=== PATIENT | male | born 1930 | race Hispanic/Latino ===

== ENCOUNTER 2018-08-02 07:56 | Day surgery (SDC) | payer MEDICARE, OTHER ==
[2018-08-02] MEDS ORDERED: XYLOCAINE 1% 20 mL ONE (09:42)
--- NOTE | 2018-08-02 10:19 | Procedure Note ---
Date of procedure: 08/02/18 Pre-op diagnosis: Left neck mass Post-op diagnosis: same Procedure: 18 gauze needle used to biopsy the neck amss 3 cores obtained Flow cytometry specimen and routine formalin containers are used. Pt tolerated the procedure. No excessive bleeding noted
[2018-08-02 12:47] VITALS: BP 158/62
--- NOTE | 2018-08-12 13:10 | Ultrasound Report ---
87-year-old male with history large left neck mass Technique: Utilizing aseptic technique, 18-gauge vascular needle was introduced into the neck mass.. Through this access, several core specimen are obtained. The patient tolerated the procedure satisfactory. Findings: There is a large mass in the left neck. The mass appears to be solid in nature with no significant increased flow. The sample specimen obtained with the procedure was provided to the pathologist in in formalin container and also for flow cytometry specimen. The patient tolerated the procedure satisfactory. No immediate post procedure complication was noted.
== END 2018-08-02 07:57 | disposition home or self-care (01) ==
LOC: CATHLABREC 07:56 → EDSTATUS 09:00
PROVIDERS: ATTEND Internal Medicine
DX: C83.30 Diffuse large B-cell lymphoma, unspecified site (principal)
CPT/HCPCS: 20206; 76942; 88184; 88185; 88305; 88307; 88341; 88342

== ENCOUNTER 2018-08-11 12:17 | Outpatient (CLI) | payer MEDICARE, OTHER ==
--- NOTE | 2018-08-12 15:36 | PET Report ---
PET/CT:08/11/18 12:17:00 CLINICAL: Left neck mass. 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 RADIOPHARMACEUTICAL: 12.214mCi F18-FDG. COMPARISON: None. TECHNIQUE- Following intravenous injection of F-18 FDG and an approximately 60 minute uptake period, CT and PET images from the mid skull to the upper thighs were acquired with the patient in the fasted state. No contrast was administered. The CT protocol used for this PET CT study is designed for attenuation correction and anatomic localization of PET abnormalities. This reeling machine operator CT is not desired to produce and cannot replace, ffngl-lo-ywp-art diagnostic CT scans with specific imaging protocols for different body parts and indications. Plasma glucose at the time of this test: 99g/dl. The standardized uptake values (SUV) are normalized to patient body weight and indicate the highest activity concentration (SUV max) in a given disease site. FINDINGS: Brain--Physiologic FDG uptake in the visualized regions of the brain. Neck--A large FDG avid left neck mass with SUV 23.6 lies posterior to the left sternocleidomastoid muscle and extends from C3 into the chest to the level of the left sternoclavicular joint. The mass measures 11.1 x 9.4 x 5.6 cm. The mass encases the left subclavian artery just distal to its origin and encases the left common carotid artery from just distal to its origin to just proximal to the carotid bifurcation. The left jugular vein is also encased by the mass. The trachea and larynx are displaced to the right. An FDG avid right infraclavicular lymph node measures approximately 1 cm with SUV 6.5. Chest--Physiologic FDG uptake in mediastinal blood pool and myocardium. Lungs--No abnormal uptake. No pulmonary nodule or mass. Pleura/pericardium--No abnormal uptake. Thoracic nodes--No abnormal uptake. Hepatobiliary--No abnormal uptake. Liver background SUV mean, as a reference for comparing FDG studies, is 2.9 . No liver mass. A 2.2 cm benign right hepatic cyst. The gallbladder and bile ducts are normal. Spleen--No abnormal uptake. The spleen is normal size. Pancreas--No abnormal uptake. The pancreas is atrophic with extensive calcification. An oval cyst of the pancreatic tail measures 3.9 x 2.6 cm. A 2.4 cm cyst in the mid pancreas extending into the lesser curvature of the stomach. A more irregular cyst of the proximal pancreas. A portion of this may include a 1.5 cm dilated proximal pancreatic duct. No peripancreatic inflammatory changes. Adrenal Glands--No abnormal uptake. Kidneys/Ureters/Bladder--No abnormal uptake. Small bilateral renal cysts and bilateral cortical thinning and renal scarring. Abdominopelvic Nodes--An FDG avid right para-aortic mass slightly cephalad to the aortic bifurcation with SUV 22.4 measures 3.1 x 1.8 cm. At the same level, a left para-aortic FDG avid 2.3 x 1.9 cm lymph node with SUV 29.2. No pelvic lymphadenopathy. Bowel/Peritoneum/Mesentery--No abnormal uptake. extensive diverticulosis of the colon but no signs of diverticulitis. Pelvic organs--No abnormal uptake. Bones/Soft Tissues--No abnormal uptake. No suspicious bone lesions. IMPRESSION- 1. An 11 cm FDG avid left neck mass correlates with the known non-Hodgkin's lymphoma. 2. A 1 cm FDG avid right infraclavicular lymph node. 3. No mediastinal or hilar lymphadenopathy. 4. Two FDG avid para-aortic masses. 5. A benign right hepatic cyst. 6. 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
== END 2018-08-11 12:18 | disposition home or self-care (01) ==
LOC: PET 12:17
PROVIDERS: ATTEND Internal Medicine Hematology & Oncology
DX: C85.91 Non-Hodgkin lymphoma, unspecified, lymph nodes of head, face, and neck (principal); K76.89 Other specified diseases of liver; K86.1 Other chronic pancreatitis; I10 Essential (primary) hypertension; Z72.89 Other problems related to lifestyle
CPT/HCPCS: 78815; 82962; A9552

== ENCOUNTER 2018-08-26 09:13 | Outpatient (CLI) | payer MEDICARE, OTHER | END 2018-08-26 09:14 | disposition home or self-care (01) | LOC: ECHO 09:13 | PROVIDERS: ATTEND Internal Medicine Hematology & Oncology | DX: I37.1 Nonrheumatic pulmonary valve insufficiency (principal); I34.0 Nonrheumatic mitral (valve) insufficiency; C85.91 Non-Hodgkin lymphoma, unspecified, lymph nodes of head, face, and neck; E08.8 Diabetes mellitus due to underlying condition with unspecified complications; I10 Essential (primary) hypertension; E78.5 Hyperlipidemia, unspecified | CPT/HCPCS: 93306 ==

== ENCOUNTER 2018-09-02 11:57 | Day surgery (SDC) | payer MEDICARE, OTHER ==
[~2018-09-02 11:57] MED LIST: ANCEF/STERILE WATER 2 GM/20 ML 2 GM/20 ML SYRINGE IV NR; LACTATED RINGERS 1,000 ML IV SCH
[2018-09-02] MEDS ORDERED: XYLOCAINE 1% 20 mL ONE (12:31)
[2018-09-02] MEDS ORDERED: NACL 0.9% 250ML 250 ML ONE (12:32)
[2018-09-02] MEDS ORDERED: HEPARIN 10,000 UNITS/10 ML ONE (12:32)
[2018-09-02] MEDS ORDERED: MARCAINE 0.5% INFILTRATI ONE ×2 (12:32→14:20)
[2018-09-02] MEDS ORDERED: XYLOCAINE MPF 2% ONE (13:20)
[2018-09-02] MEDS ORDERED: DIPRIVAN 10 MG/ML IV ONE (13:20)
[2018-09-02] MEDS ORDERED: DILAUDID ONE (13:20)
--- NOTE | 2018-09-02 13:32 | Anesthesia Consultation ---
Anesthesia Consult and Med Hx Date of service: 09/02/18 - Airway Anesthetic Teeth Evaluation: Good (some missing teeth) ROM Head & Neck: Adequate (big lump on the left side of the neck, not compromising airways) Mallampati Class: Class II Intubation Access Assessment: Probably Good - Pre-Operative Health Status ASA Pre-Surgery Classification: ASA3 Proposed Anesthetic Plan: MAC - Cardiovascular System Hx Hypertension: Yes (OVER 20YRS) Hx Coronary Artery Disease: No (high cholesterol) - Central Nervous System Hx Psychiatric Problems: No - Endocrine Hx Renal Disease: No (h/o prostate CA, s/p prostate seeds) Hx Non-Insulin Dependent Diabetes: Yes - Hematic Hx Anemia: Yes (ORAL IRON) - Other Systems Hx Alcohol Use: Yes (WHEN HE WANTS) Hx Substance Use: No Hx Cancer: Yes (Prostate CA 90', NON-HODGKIN'S LYMPHOMA)
--- NOTE | 2018-09-02 13:32 | Anesthesia Day of Surgery ---
Anesthesia Day of Surgery - Day of Surgery Patient Examined: Yes Patient H&P Reviewed: Yes Patient is NPO: Yes
[2018-09-02] MEDS ORDERED: HEPARIN 10,000 UNITS/10 ML IV ONE (14:19)
[2018-09-02] MEDS ORDERED: XYLOCAINE 1% 20 mL INFILTRATI ONE (14:20)
--- NOTE | 2018-09-02 14:42 | Short Stay Summary ---
Short Stay Documentation Date of service: 09/02/18 - History H&P: obtained from office - Allergies and Medications Current Medications: Allergies No Known Allergies Allergy (Verified 09/01/18 16:25) Home Medications Medication Instructions Recorded Confirmed Last Taken Type Metformin HCl 500 mg PO BID 08/02/18 09/02/18 09/01/18 19:00 History Doxazosin Mesylate 8 mg PO DAILY 09/01/18 09/02/18 09/01/18 09:00 History Ferrous Sulfate [Feosol] 325 mg PO QDAY 09/01/18 09/02/18 09/01/18 09:00 History Simvastatin 20 mg PO DAILY 09/01/18 09/02/18 09/01/18 19:00 History Active Medications Cefazolin Sodium (Ancef/Sterile Water 2 Gm/20 Ml) 2 gm in 20 mls @ 80 mls/hr IV PREOP NR; Protocol Stop: 09/02/18 23:59 Lactated Ringer's (Lactated Ringers) 1,000 mls @ 75 mls/hr IV DIRECT HEIKE Last Admin: 09/02/18 12:30 Dose: 75 mls/hr Documented by: - Physical exam General appearance: no acute distress Lungs: Normal air movement - Brief post op/procedure progress note Date of procedure: 09/02/18 (Dictation:[id number]) Pre-op diagnosis: lymphoma Post-op diagnosis: same Procedure: Port placement under US guidance IVF 350cc Anesthesia: MAC Findings: normal anatomy Surgeon: ADALGISA GALLEGOS Estimated blood loss: minimal Pathology: none Condition: stable - Disposition Condition at discharge: Stable Disposition: DC-01 TO HOME OR SELFCARE Short Stay Discharge Plan Activity: other (no driving for 3 days) Diet: regular Wound: open to air, keep clean and dry, other (May shower tomorrow. Pat dry wounds. Apply ice to wounds for 10-15min/4-5 times a day) Special Instructions: no heavy lifting (or strenuous activity for 1 week) Additional Instructions: ACTIVITY - NO DRIVING FOR NEXT 3 DAYS. -NO HEAVY LIFTING OR STRENUOUS ACTIVITY FOR 1 WEEK. DIET -REGULAR. WOUND- KEEP CLEAN AND DRY . - YOU MAY SHOWER TOMORROW PAT DRY. - PLACE ICEPACK ON WOUND FOR 10-15 MINS 4-5 TIMES PER [address] CALL [address] ROSY'S OFFICE FOR FOLLOW UP CARE AND FOR ANY QUESTIONS OR CONCERNS RELATED TO THIS PROCEDURE. YOU ARE GIVEN A A BOOKLET SMART PORT WITH AND ID CARD AND BLUE BRACELET . KEEP ID CARD IN WALLET WEAR BRACELET. Follow up with: BUBBA ARCINIEGA MD [Primary Care Provider] - 7 Days Forms: Outpatient Surgery DC Inst.
--- NOTE | 2018-09-02 15:01 | Fluoroscopy Report ---
FLUOROSCOPY CENTRAL VENOUS DEVICE PLACEMENT HISTORY: Lymphoma, Rnkvmt-q-Yzbw insertion AP view of the chest is presented. A right IJ Hqcbyz-i-Gier has been inserted which terminates in the cavoatrial junction. There is no evidence for pneumothorax. Patchy infiltrate or scarring is suspected in the medial left upper lobe. The right lung is clear. No pleural fluid collection or mass is identified. Heart size is within normal limits. IMPRESSION: Right Yepeur-n-Dxxw placement as described. No pneumothorax.
[2018-09-02 17:41] VITALS: BP 142/65
--- NOTE | 2018-09-03 17:19 | Operative Report ---
PREOPERATIVE DIAGNOSIS: Lymphoma. POSTOPERATIVE DIAGNOSIS: Lymphoma. PROCEDURES: 1. Insertion of tunneled centrally inserted central venous access device with subcutaneous port. 2. Ultrasound guidance for vascular access. ATTENDING PHYSICIAN: Kg Benson MD ANESTHESIA: General. ESTIMATED BLOOD LOSS: Minimal. FLUIDS: 350 mL. IMPLANT: Smart Port. FINDINGS: Normal vascular anatomy. COMPLICATIONS: None. DISPOSITION: Stable, transferred to Recovery Room. INDICATIONS: This is an 87-year-old male who was recently diagnosed with lymphoma and assessed to be in need for chemotherapy. The patient was referred for port placement. Procedure, risks, benefits were explained to the patient. Risks included but were not limited to infection, bleeding, pain, injury to surrounding structures, possible hemopneumothorax, possible need for further procedures in the future. The patient understood and consented. OPERATIVE NOTE: The patient was brought to the operating room and placed on the table in supine position. After adequate sedation was established, ultrasound examination was done of the right internal jugular, right subclavian veins. I did not go on the left because the patient had a large neck mass on the left side, which obscured the entry point for the left internal jugular vein. The right internal jugular vein was very well visualized. There were no areas of concern, no clot or stenosis. The right subclavian vein was identified; however, it was found to be noncompressible; therefore, I did not want to take a chance in case our assessment was incorrect about which vessel that was, so we plan to go in the right internal jugular vein. Sterile prep and drape was done. The patient was placed in Trendelenburg position. Antibiotics had been administered. SCDs were in place. Time-out was called. I began by anesthetizing the planned vascular access point in the right neck. Under ultrasound guidance, I watched the introducer needle go into the vein. Blood was easily aspirated. A guidewire was passed. I could see it with the ultrasound in the right internal jugular vein. Fluoroscopy was brought in. Guidewire was on the right side of the heart. Wire was then secured to the drape. Planned pocket site was anesthetized as was the tract site. Oblique incision was made along the skin lines. Pocket was created. We checked to make sure the port could easily sit in the pocket and then the tunneler was used to pass the catheter up to the neck. Dilator and sheath were inserted over the wire. We checked multiple times to make sure the wire was freely movable as we were inserting the dilator, then the dilator and the wire were removed. Catheter was inserted. Length was adjusted based on fluoroscopy. The distal end was trimmed off and the port was attached. Using the dilute heparinized saline, we had easy aspiration and flush. We then positioned the catheter in its appropriate position, checked with fluoroscopy. It appeared to be in a very good position. I saw no evidence of any pneumothorax. Locking solution was administered. We made sure there was no bleeding. Subcutaneous tissue at the port site was closed with interrupted 3-0 Vicryl sutures. Skin sites were closed with 4-0 Monocryl subcuticular stitches. The skin was cleaned and dried. Dermabond was placed. The patient tolerated procedure well. There were no complications. Post-procedure chest x-ray showed no evidence of any complications and port to be in good position. JOB# [id number] BALJEET/KAROLINE
== END 2018-09-02 16:30 | disposition home or self-care (01) ==
LOC: OR 11:57
PROVIDERS: ATTEND Surgery
DX: C85.80 Other specified types of non-Hodgkin lymphoma, unspecified site (principal); I25.10 Atherosclerotic heart disease of native coronary artery without angina pectoris; E78.00 Pure hypercholesterolemia, unspecified; I10 Essential (primary) hypertension; E11.9 Type 2 diabetes mellitus without complications; Z85.89 Personal history of malignant neoplasm of other organs and systems; Z85.46 Personal history of malignant neoplasm of prostate; Z98.890 Other specified postprocedural states; Z79.84 Long term (current) use of oral hypoglycemic drugs; Z79.899 Other long term (current) drug therapy; Z72.89 Other problems related to lifestyle; Z86.2 Personal history of diseases of the blood and blood-forming organs and certain disorders involving the immune mechanism
CPT/HCPCS: 36561; 77001; 82962; C1788; J0690; J1170; J1644; J2704; J7050; J7120

== ENCOUNTER 2019-03-23 13:12 | Outpatient (CLI) | payer MEDICARE, OTHER ==
--- NOTE | 2019-03-23 17:14 | PET Report ---
PET/CT HISTORY: C85.91. Lymphoma restaging exam TECHNIQUE: The patient's fasting blood glucose was 139. The patient weighed 130 lbs. The patient w as injected with 14 mCi of FDG in the right wrist at 1358 and imaging was started at 1448. The patie nt was imaged from the skull base to the thighs. COMPARISON: PET scan from 08/11/2018 FINDINGS: FDG findings: Previously seen extensive adenopathy/mass in the left neck has resolved. Likewise, pel geovany/retroperitoneal adenopathy has resolved. There is no abnormal FDG uptake on the current examinati on, only scattered physiologic uptake. Non-FDG findings: Findings of chronic pancreatitis again noted with old pseudocysts. The hepatic and renal cysts are stable. Some of the renal cysts are hyperdense on the current examination. Otherwise no significant new incidental abnormality. IMPRESSION: Markedly improved examination with resolution of pathologic adenopathy. Signer Name: Nate Osman MD Signed: 03/23/2019 5:09 PM Workstation Name: [id number]
== END 2019-03-23 13:13 | disposition home or self-care (01) ==
LOC: PET 13:12
PROVIDERS: ATTEND Internal Medicine Hematology & Oncology
DX: C85.91 Non-Hodgkin lymphoma, unspecified, lymph nodes of head, face, and neck (principal); I10 Essential (primary) hypertension; E78.00 Pure hypercholesterolemia, unspecified; E11.9 Type 2 diabetes mellitus without complications; Z86.2 Personal history of diseases of the blood and blood-forming organs and certain disorders involving the immune mechanism
CPT/HCPCS: 78815; 82962; A9552

== ENCOUNTER 2019-07-16 20:19 | Emergency (ER) | payer MEDICARE, OTHER ==
[2019-07-16] MEDS ORDERED: HYDROcodone/ACETAMINOPHEN 5-325 MG TAB PO ONE (20:59)
[2019-07-16 21:18] LABS: Basophils % (Auto) 0.3 % (0.0-1.8); Eosinophils % (Auto) 0.6 % (0.0-4.3); Hematocrit 29.6 % (35.5-45.6); Hemoglobin 9.9 gm/dl (11.8-15.2); Lymphocytes # (Auto) 0.3 K/mm3 (1.2-5.4); Lymphocytes % (Auto) 3.8 % (13.4-35.0); Mean Corpuscular HGB Conc 34 % (32-34); Mean Corpuscular Volume 88 fl (84-94); Monocytes # (Auto) 1.1 K/mm3 (0.0-0.8); Monocytes % (Auto) 13.4 % (0.0-7.3); Platelet Count 166 K/mm3 (140-440); Red Blood Count 3.35 M/mm3 (3.65-5.03); Red Cell Distribution Width 14.7 % (13.2-15.2)
[2019-07-16 21:39] LABS: BUN/Creatinine Ratio 22; Blood Urea Nitrogen 24 mg/dL (9-20); Calcium 8.7 mg/dL (8.4-10.2); Hemolysis Index 3
--- NOTE | 2019-07-16 22:03 | XRay Report ---
LEFT FOOT, 3 VIEWS 07/16/2019 INDICATION / CLINICAL INFORMATION: foot pain after fall. COMPARISON: None available. FINDINGS: Diffuse osteopenia. No fracture or dislocation. Signer Name: Alexis Rachel MD Signed: 07/16/2019 9:58 PM Workstation Name: [id number]
--- NOTE | 2019-07-16 22:04 | XRay Report ---
LEFT ANKLE, 3 VIEWS 07/16/2019 INDICATION / CLINICAL INFORMATION: ankle pain after fall. COMPARISON: None available. FINDINGS: Diffuse osteopenia. Fracture of the distal fibular shaft above the level of the plafond. No evidence of talar dislocation. Signer Name: Alexis Rachel MD Signed: 07/16/2019 10:00 PM Workstation Name: [id number]
--- NOTE | 2019-07-16 22:20 | Emergency Department Report ---
<MONA FOSS - Last Filed: 07/17/19 11:23> ED Extremity Problem HPI - General Chief complaint: Extremity Injury, Lower Stated complaint: FALL (LEFT) FOOT PAIN Time Seen by Provider: 07/16/19 20:47 - Related Data Home Medications Medication Instructions Recorded Confirmed Last Taken Metformin HCl 500 mg PO BID 08/02/18 09/02/18 09/01/18 19:00 Doxazosin Mesylate 8 mg PO DAILY 09/01/18 09/02/18 09/01/18 09:00 Ferrous Sulfate [Feosol 325 MG tab] 325 mg PO QDAY 09/01/18 09/02/18 09/01/18 09:00 Simvastatin 20 mg PO DAILY 09/01/18 09/02/18 09/01/18 19:00 Previous Rx's Medication Instructions Recorded Last Taken Type Docusate Sodium [Colace] 100 mg PO BID PRN #20 capsule 07/16/19 Unknown Rx HYDROcodone/APAP 5-325 [[place] 1 each PO Q6HR PRN #14 tablet 07/16/19 Unknown Rx 5/325] Ibuprofen [Motrin] 600 mg PO Q8H PRN #20 tablet 07/16/19 Unknown Rx Allergies Allergy/AdvReac Type Severity Reaction Status Date / Time No Known Allergies Allergy Verified 09/01/18 16:25 ED Past Medical Hx - Medications Home Medications: Home Medications Medication Instructions Recorded Confirmed Last Taken Type Metformin HCl 500 mg PO BID 08/02/18 09/02/18 09/01/18 19:00 History Doxazosin Mesylate 8 mg PO DAILY 09/01/18 09/02/18 09/01/18 09:00 History Ferrous Sulfate [Feosol 325 MG tab] 325 mg PO QDAY 09/01/18 09/02/18 09/01/18 09:00 History Simvastatin 20 mg PO DAILY 09/01/18 09/02/18 09/01/18 19:00 History Docusate Sodium [Colace] 100 mg PO BID PRN #20 capsule 07/16/19 Unknown Rx HYDROcodone/APAP 5-325 [[place] 1 each PO Q6HR PRN #14 tablet 07/16/19 Unknown Rx 5/325] Ibuprofen [Motrin] 600 mg PO Q8H PRN #20 tablet 07/16/19 Unknown Rx ED Medical Decision Making - Lab Data Result diagrams: 07/16/19 20:57 07/16/19 20:57 - Medical Decision Making The patient has limited mobility and is not able to ambulate more than 150 feet ED Disposition Clinical Impression: Closed fracture of left distal fibula, Fall Disposition: DC-01 TO HOME OR SELFCARE Condition: Stable Instructions: Ankle Fracture (ED), Fall Prevention for Older Adults (ED) Additional Instructions: Take the medication as prescribed. Follow-up with your doctor or the clinic/doctor provided. Return is symptoms worsen as indicated by the discharge instructions. Prescriptions: Docusate Sodium [Colace] 100 mg PO BID PRN #20 capsule PRN Reason: Constipation Ibuprofen [Motrin] 600 mg PO Q8H PRN #20 tablet PRN Reason: Pain, Moderate (4-6) HYDROcodone/APAP 5-325 [[place] 5/325] 1 each PO Q6HR PRN #14 tablet PRN Reason: Pain , Severe (7-10) Referrals: PRIMARY CAREMD [Primary Care Provider] - 3-5 Days VINOD CLEMENT MD [Staff Physician] - 3-5 Days (Orthopedic doctor) <ROSSI BRUCE - Last Filed: 07/18/19 04:51> ED Extremity Problem HPI - General Source: patient, EMS Mode of arrival: Stretcher Limitations: Physical Limitation - History of Present Illness Initial comments: 88-year-old male with a past medical history of prostate cancer, diabetes, hypertension presents to the hospital after ground-level fall at home about 6:30 PM. Patient states he tripped while ambulating and complains of moderate to severe left ankle and foot pain that is worse with palpation and movement. Patient does not think he hit his head and does not have a headache or neck pain. He apparently had a recent fall and was evaluated at another hospital he received sutures to his scalp. Patient denies headache, neck pain, chest pain, shortness of breath, syncope, dizziness, or abdominal pain. Pt is alert and oriented to person, place, and year. Resides at home with his and uses a cane and walker to ambulate at home. His nephew Cordell Venegas was in the ED and states that he lives about 25 minutes from his uncle and checks on him periodically and pt lives at home with his . Severity scale (0 -10): 10 ED Review of Systems ROS: Stated complaint: FALL (LEFT) FOOT PAIN Other details as noted in HPI Comment: All other systems reviewed and negative ED Past Medical Hx - Past Medical History Previous Medical History?: Yes Hx Hypertension: Yes (OVER 20YRS) Hx Diabetes: Yes (OVER 20YRS) Hx Renal Disease: No (h/o prostate CA, s/p prostate seeds) Hx of Cancer: Yes Hx HIV: No - Surgical History Past Surgical History?: Yes Additional Surgical History: Prostate removal - Social History Smoking Status: Never Smoker Substance Use Type: None ED Physical Exam - General Limitations: Physical Limitation - Other Other exam information: General: No limitations, patient is alert in no acute distress Head exam: Atraumatic, normocephalic Eyes exam: Normal appearance ENT: Moist mucous membrane Neck exam: Normal inspection, full range of motion Respiratory exam: Clear to auscultation bilateral, no wheezes, rales, crackles Cardiovascular: Normal rate and rhythm Abdomen: Soft, nondistended, and nontender, with normal bowel sounds, no rebound, or guarding Extremity: Left ankle swelling with tenderness to the medial lateral malleolus and dorsum of foot. 2+ E peoples. Limited movement of ankle secondary to pain. Patient does not have any hip pain, pelvis pain, or knee pain. Back: Normal Inspection, no CVA tenderness Neurologic: Alert, oriented x3, speech clear, no gross motor or sensory deficit Psychiatric: Normal mood, affect Skin: No rash ED Course Vital Signs 07/16/19 07/16/19 07/16/19 20:32 20:45 21:00 Temperature Pulse Rate 96 H 91 H Respiratory 15 20 Rate Blood Pressure 129/51 123/55 Blood Pressure 129/51 [Left] O2 Sat by Pulse 98 96 Oximetry 07/16/19 07/16/19 07/16/19 21:16 21:30 21:46 Temperature Pulse Rate 87 81 80 Respiratory 18 20 14 Rate Blood Pressure 129/79 126/69 104/48 Blood Pressure [Left] O2 Sat by Pulse 96 98 92 Oximetry 07/16/19 07/16/19 07/16/19 22:00 22:15 22:34 Temperature Pulse Rate 76 75 77 Respiratory 13 14 16 Rate Blood Pressure 91/49 96/51 91/49 Blood Pressure [Left] O2 Sat by Pulse 94 96 97 Oximetry 07/16/19 07/16/19 07/16/19 22:45 23:00 23:16 Temperature Pulse Rate 73 75 Respiratory 16 16 Rate Blood Pressure 125/56 123/61 135/64 Blood Pressure [Left] O2 Sat by Pulse 95 88 98 Oximetry 07/17/19 07/17/19 07/17/19 02:25 04:22 06:28 Temperature 97.9 F 98.0 F Pulse Rate 76 74 72 Respiratory 16 18 18 Rate Blood Pressure Blood Pressure 110/62 120/61 113/44 [Left] O2 Sat by Pulse 97 98 96 Oximetry - Reevaluation(s) Reevaluation #1: 07/16/19 22:36 case management consult ordered for the a.m. to assess for additional support at home since his mobility will be limited. ED Medical Decision Making - Lab Data Result diagrams: 07/16/19 20:57 07/16/19 20:57 Lab Results 07/16/19 07/16/19 Range/Units 20:57 20:57 WBC 8.2 (4.5-11.0) K/mm3 RBC 3.35 L (3.65-5.03) M/mm3 Hgb 9.9 L (11.8-15.2) gm/dl Hct 29.6 L (35.5-45.6) % MCV 88 (84-94) fl MCH 30 (28-32) pg MCHC 34 (32-34) % RDW 14.7 (13.2-15.2) % Plt Count 166 (140-440) K/mm3 Lymph % (Auto) 3.8 L (13.4-35.0) % Sutter % (Auto) 13.4 H (0.0-7.3) % Eos % (Auto) 0.6 (0.0-4.3) % Baso % (Auto) 0.3 (0.0-1.8) % Lymph # 0.3 L (1.2-5.4) K/mm3 Sutter # 1.1 H (0.0-0.8) K/mm3 Eos # 0.0 (0.0-0.4) K/mm3 Baso # 0.0 (0.0-0.1) K/mm3 Seg Neutrophils % 81.9 H (40.0-70.0) % Seg Neutrophils # 6.7 (1.8-7.7) K/mm3 Sodium 136 L (137-145) mmol/L Potassium 3.7 (3.6-5.0) mmol/L Chloride 97.7 L (98-107) mmol/L Carbon Dioxide 23 (22-30) mmol/L Anion Gap 19 mmol/L BUN 24 H (9-20) mg/dL Creatinine 1.1 (0.8-1.5) mg/dL Estimated GFR > 60 ml/min BUN/Creatinine Ratio 22 % Glucose 160 H (75-100) mg/dL Calcium 8.7 (8.4-10.2) mg/dL - Radiology Data Radiology results: report reviewed LEFT ANKLE, 3 VIEWS 07/16/2019 INDICATION / CLINICAL INFORMATION: ankle pain after fall. COMPARISON: None available. FINDINGS: Diffuse osteopenia. Fracture of the distal fibular shaft above the level of the plafond. No evidence of talar dislocation. LEFT FOOT, 3 VIEWS 07/16/2019 INDICATION / CLINICAL INFORMATION: foot pain after fall. COMPARISON: None available. FINDINGS: Diffuse osteopenia. No fracture or dislocation. CT HEAD WITHOUT CONTRAST INDICATION : fall, possible head injury. TECHNIQUE: Axial, coronal and sagittal CT imaging was performed from the skull apex through the skull base without contrast. All CT scans at this location are performed using CT dose reduction for ALARA by means of automated exposure control. COMPARISON: None available. FINDINGS: PARENCHYMA: There is age-appropriate atrophy without an acute hemorrhage or extra-axial collection. No mass, midline shift or large acute territorial infarction is seen. VENTRICLES: Prominent secondary to atrophy. No acute abnormality. SOFT TISSUES: There is a small scalp contusion/laceration along the skull vertex. BONES: No acute osseous abnormality. SINUSES: No significant abnormality. ADDITIONAL FINDINGS: None. IMPRESSION: 1. No acute intracranial abnormality. Small scalp contusion/laceration. 2. Additional chronic changes as above. - Medical Decision Making Patient has a left ankle fracture. Posterior splint applied. Local provided for pain. Patient denies significant head injury however, given age and the fact that he is not completely sure CT head was performed and was neg. Patient will likely need a walker to ambulate it with the outpatient follow-up with orthopedics. Case management consult has been ordered in the a.m. to assess for safe home discharge and adequate home support. Pt states that a nurse is scheduled to come to his home on [address] for the very first time that was arranged by another physician. He states that they are with the [facility]. Perhaps case management can reach out to this [employer] [facility] [employer] tomorrow during the day and confirmed that he has arrangements for adequate care at home given his new disability secondary to fracture. Case d/w Pts nephew Cordell Venegas [phone]. Pt's number [phone] - Differential Diagnosis fracture, contusion, sprain Critical Care Time: No Critical care attestation.: If time is entered above; I have spent that time in minutes in the direct care of this critically ill patient, excluding procedure time. ED Disposition Is pt being admited?: No
[2019-07-16] MEDS ORDERED: MORPHINE 4 MG/1 ML INJ IV ONE (22:58)
[2019-07-16] MEDS ORDERED: ONDANSETRON 4 MG/2 ML INJ IV ONE (22:58)
--- NOTE | 2019-07-16 23:10 | Cat Scan Report ---
CT HEAD WITHOUT CONTRAST INDICATION : fall, possible head injury. TECHNIQUE: Axial, coronal and sagittal CT imaging was performed from the skull apex through the skul l base without contrast. All CT scans at this location are performed using CT dose reduction for ALA RA by means of automated exposure control. COMPARISON: None available. FINDINGS: PARENCHYMA: There is age-appropriate atrophy without an acute hemorrhage or extra-axial collection. No mass, midline shift or large acute territorial infarction is seen. VENTRICLES: Prominent secondary to atrophy. No acute abnormality. SOFT TISSUES: There is a small scalp contusion/laceration along the skull vertex. BONES: No acute osseous abnormality. SINUSES: No significant abnormality. ADDITIONAL FINDINGS: None. IMPRESSION: 1. No acute intracranial abnormality. Small scalp contusion/laceration. 2. Additional chronic changes as above. Signer Name: Saran Georges MD Signed: 07/16/2019 11:06 PM Workstation Name: [id number]
[2019-07-17 06:29] VITALS: BP 113/44
== END 2019-07-17 14:08 | disposition home or self-care (01) ==
LOC: ED 20:19
DX: S82.832A Other fracture of upper and lower end of left fibula, initial encounter for closed fracture (principal); I10 Essential (primary) hypertension; E11.9 Type 2 diabetes mellitus without complications; G93.89 Other specified disorders of brain; Z21 Asymptomatic human immunodeficiency virus [HIV] infection status; Z98.890 Other specified postprocedural states; Z79.1 Long term (current) use of non-steroidal anti-inflammatories (NSAID); Z79.899 Other long term (current) drug therapy; W18.30XA Fall on same level, unspecified, initial encounter; Y93.89 Activity, other specified; Y92.89 Other specified places as the place of occurrence of the external cause; Y99.8 Other external cause status
CPT/HCPCS: 36415; 70450; 80048; 85025

== ENCOUNTER 2019-07-19 16:31 | Emergency (ER) | payer MEDICARE, OTHER ==
--- NOTE | 2019-07-19 18:25 | Cat Scan Report ---
CT head/brain wo con INDICATION / CLINICAL INFORMATION: 88 years Male; closed head inj. TECHNIQUE: Routine CT head without contrast. All CT scans at this location are performed using CT dos e reduction for ALARA by means of automated exposure control. COMPARISON: 07/16/2019 FINDINGS: BRAIN / INTRACRANIAL CONTENTS: Subdural hygroma versus very old subdural hematoma seen on the left. F indings may have slightly increased in size when compared with prior. There is minimal, diffuse mass effect the left cerebral hemisphere and slight left to right midline shift. Basal cisterns remain wel l-visualized. 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 Otherwise, no acute hemorrhage, mass effect, midline shift, hydrocephalus, or acute, large territori al infarct. Mild cerebral and cerebellar atrophy. Findings are asymmetrically most prominent in the parietal lobe s. No significant white matter disease appreciated. CRANIOCERVICAL JUNCTION: No significant abnormality. ORBITS: No significant abnormality of visualized orbits. SINUSES / MASTOIDS: No significant abnormality the visualized paranasal sinuses or mastoid air cells. ADDITIONAL FINDINGS: Atherosclerotic disease is seen in the anterior circulation. IMPRESSION: 1. Slight progression in size in the left subdural collection as described above. Short-term follow-u p is recommended. 2. Otherwise, no focal mass, acute hemorrhage, hydrocephalus, or acute, large territorial infarct see n. Signer Name: Bran Linn MD, III Signed: 07/19/2019 6:21 PM Workstation Name: [id number]
--- NOTE | 2019-07-19 19:17 | Emergency Department Report ---
ED General Adult HPI - General Chief complaint: Fall Stated complaint: FALL Time Seen by Provider: 07/19/19 17:20 Source: EMS Mode of arrival: Ambulatory Limitations: No Limitations - History of Present Illness Initial comments: Patient is a 88-year-old male with a past medical history of diabetes hypertension and early dementia who is presenting status post fall. Patient has had numerous falls lately. Patient fell several days ago and has a distal fibular fracture and was splinted. Patient also has some stitches on his head from a fall from a week ago. Patient fell again today and struck the left side of his restorationist. Patient does not remember if he lost consciousness or not. Patient states he has no significant pain at this time. Patient is a poor historian. Severity scale (0 -10): 0 - Related Data Home Medications Medication Instructions Recorded Confirmed Last Taken Metformin HCl 500 mg PO BID 08/02/18 09/02/18 09/01/18 19:00 Doxazosin Mesylate 8 mg PO DAILY 09/01/18 09/02/18 09/01/18 09:00 Ferrous Sulfate [Feosol 325 MG tab] 325 mg PO QDAY 09/01/18 09/02/18 09/01/18 09:00 Simvastatin 20 mg PO DAILY 09/01/18 09/02/18 09/01/18 19:00 Previous Rx's Medication Instructions Recorded Last Taken Type Docusate Sodium [Colace] 100 mg PO BID PRN #20 capsule 07/16/19 Unknown Rx HYDROcodone/APAP 5-325 [[place] 1 each PO Q6HR PRN #14 tablet 07/16/19 Unknown Rx 5/325] Ibuprofen [Motrin] 600 mg PO Q8H PRN #20 tablet 07/16/19 Unknown Rx Allergies Allergy/AdvReac Type Severity Reaction Status Date / Time No Known Allergies Allergy Verified 09/01/18 16:25 ED Review of Systems ROS: Stated complaint: FALL Other details as noted in HPI Comment: All other systems reviewed and negative ED Past Medical Hx - Past Medical History Previous Medical History?: Yes Hx Hypertension: Yes (OVER 20YRS) Hx Diabetes: Yes (OVER 20YRS) Hx Renal Disease: No (h/o prostate CA, s/p prostate seeds) Hx HIV: No - Surgical History Past Surgical History?: Yes Additional Surgical History: Prostate removal - Social History Smoking Status: Never Smoker Substance Use Type: None - Medications Home Medications: Home Medications Medication Instructions Recorded Confirmed Last Taken Type Metformin HCl 500 mg PO BID 08/02/18 09/02/18 09/01/18 19:00 History Doxazosin Mesylate 8 mg PO DAILY 09/01/18 09/02/18 09/01/18 09:00 History Ferrous Sulfate [Feosol 325 MG tab] 325 mg PO QDAY 09/01/18 09/02/18 09/01/18 09:00 History Simvastatin 20 mg PO DAILY 09/01/18 09/02/18 09/01/18 19:00 History Docusate Sodium [Colace] 100 mg PO BID PRN #20 capsule 07/16/19 Unknown Rx HYDROcodone/APAP 5-325 [[place] 1 each PO Q6HR PRN #14 tablet 07/16/19 Unknown Rx 5/325] Ibuprofen [Motrin] 600 mg PO Q8H PRN #20 tablet 07/16/19 Unknown Rx ED Physical Exam - General Limitations: No Limitations General appearance: alert, in no apparent distress - Head Head exam: Present: normocephalic. Absent: atraumatic (Patient has a healing scar to top of his scalp with sutures in place there is no surrounding erythema. Patient also has some swelling and superficial abrasion to the left restorationist) - Eye Eye exam: Present: normal appearance - ENT ENT exam: Present: mucous membranes moist - Neck Neck exam: Present: normal inspection - Respiratory Respiratory exam: Present: normal lung sounds bilaterally. Absent: respiratory distress, wheezes, rales, rhonchi - Cardiovascular Cardiovascular Exam: Present: regular rate, normal rhythm, normal heart sounds. Absent: systolic murmur, diastolic murmur, rubs, gallop - GI/Abdominal GI/Abdominal exam: Present: soft, normal bowel sounds. Absent: distended, tenderness, guarding, rebound - Rectal Rectal exam: Present: deferred - Extremities Exam Extremities exam: Present: normal inspection - Back Exam Back exam: Present: normal inspection - Neurological Exam Neurological exam: Present: alert, oriented X3 - Psychiatric Psychiatric exam: Present: normal affect, normal mood - Skin Skin exam: Present: warm, dry, intact, normal color. Absent: rash ED Course Vital Signs 07/19/19 16:48 Temperature 98.1 F Pulse Rate 52 L Respiratory 18 Rate Blood Pressure 124/55 Blood Pressure 124/55 [Right] O2 Sat by Pulse 100 Oximetry ED Medical Decision Making - Radiology Data [facility] [address] [place] [address] Cat Scan Report Signed Patient: BASIA KRAMER MR#: [id number] : 1930 Acct:[id number] Age/Sex: 88 / M ADM Date: 07/19/19 Loc: ED Attending Dr: Ordering Physician: ARIANNA DEMPSEY MD Date of Service: 07/19/19 Procedure(s): CT head/brain wo con Accession Number(s): [id number] cc: ARIANNA DEMPSEY MD CT head/brain wo con INDICATION / CLINICAL INFORMATION: 88 years Male; closed head inj. TECHNIQUE: Routine CT head without contrast. All CT scans at this location are performed using CT dose reduction for ALARA by means of automated exposure control. COMPARISON: 07/16/2019 FINDINGS: BRAIN / INTRACRANIAL CONTENTS: Subdural hygroma versus very old subdural hematoma seen on the left. Findings may have slightly increased in size when compared with prior. There is minimal, diffuse mass effect the left cerebral hemisphere and slight left to right midline shift. Basal cisterns remain well-visualized. 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 Otherwise, no acute hemorrhage, mass effect, midline shift, hydrocephalus, or acute, large territorial infarct. Mild cerebral and cerebellar atrophy. Findings are asymmetrically most prominent in the parietal lobes. No significant white matter disease appreciated. CRANIOCERVICAL JUNCTION: No significant abnormality. ORBITS: No significant abnormality of visualized orbits. SINUSES / MASTOIDS: No significant abnormality the visualized paranasal sinuses or mastoid air cells. ADDITIONAL FINDINGS: Atherosclerotic disease is seen in the anterior circulation. IMPRESSION: 1. Slight progression in size in the left subdural collection as described above. Short-term follow-up is recommended. 2. Otherwise, no focal mass, acute hemorrhage, hydrocephalus, or acute, large territorial infarct seen. Signer Name: Bran Linn MD, III Signed: 07/19/2019 6:21 PM Workstation Name: [id number] - Medical Decision Making Patient is 88-year-old male who suffered a fall today. CT was done to rule out acute intracranial hemorrhage but was negative. Critical care attestation.: If time is entered above; I have spent that time in minutes in the direct care of this critically ill patient, excluding procedure time. ED Disposition Clinical Impression: Closed head injury, Frequent falls Disposition: DC-01 TO HOME OR SELFCARE Is pt being admited?: No Does the pt Need Aspirin: No Condition: Stable Instructions: Fall Prevention for Older Adults (ED) Referrals: PRIMARY CARE, [Primary Care Provider] - 3-5 Days Time of Disposition: 19:18
[2019-07-19 19:45] VITALS: BP 124/58
== END 2019-07-19 20:41 | disposition home or self-care (01) ==
LOC: ED 16:31
DX: S09.90XA Unspecified injury of head, initial encounter (principal); I10 Essential (primary) hypertension; E11.9 Type 2 diabetes mellitus without complications; Z98.890 Other specified postprocedural states; W18.39XA Other fall on same level, initial encounter; Z91.81 History of falling; Y93.89 Activity, other specified; Y92.89 Other specified places as the place of occurrence of the external cause; Y99.8 Other external cause status
CPT/HCPCS: 70450

== ENCOUNTER 2020-06-13 10:04 | Outpatient (CLI) | payer MEDICARE, OTHER ==
--- NOTE | 2020-06-13 14:19 | PET Report ---
PET/CT HISTORY: C83.31 /Z51.12/D63.1 /D50.411. TECHNIQUE: The patient's fasting blood glucose was 199. The patient weighed 130 lbs. The patient w as injected with 14.9 mCi of FDG in the left antecubital fossa at 1114 hours and imaging was started at 1204 hours. The patient was imaged from the skull base to the thighs. All CT scans at this locati on are performed using CT dose reduction for ALARA by means of automated exposure control. Images wer e reviewed on a workstation. COMPARISON: 03/23/2019 FINDINGS: IMAGED BRAIN: [Physiologic FDG uptake. NECK: Physiologic FDG uptake. CHEST WALL: Physiologic FDG uptake. MEDIASTINUM: Physiologic FDG uptake. Stable mild cardiomegaly. Stable moderate hiatal hernia. LUNGS: Physiologic FDG uptake. Small bilateral layering pleural effusions have developed. HEPATOBILIARY: Physiologic FDG uptake. Stable scattered liver cysts. PANCREAS: Physiologic FDG uptake. SPLEEN: Physiologic FDG uptake. KIDNEYS/BLADDER: Physiologic FDG uptake. ADRENAL GLANDS: Physiologic FDG uptake. GI/MESENTERY: Physiologic FDG uptake. PELVIC VISCERA: Physiologic FDG uptake. LYMPH NODES: Physiologic FDG uptake. Stable calcified lymph nodes in the base of the mesentery which probably represents previously treated disease. OSSEOUS STRUCTURES: Physiologic FDG uptake. No suspicious bony lesions are detected. ADDITIONAL FINDINGS: None. IMPRESSION: Negative PET CT. No evidence for disease recurrence. Signer Name: Samm Das Jr, MD Signed: 06/13/2020 2:15 PM Workstation Name: [id number]
== END 2020-06-13 10:05 | disposition home or self-care (01) ==
LOC: PET 10:04
PROVIDERS: ATTEND Internal Medicine Hematology & Oncology
DX: C83.31 Diffuse large B-cell lymphoma, lymph nodes of head, face, and neck (principal); J90 Pleural effusion, not elsewhere classified; D63.1 Anemia in chronic kidney disease; D50.8 Other iron deficiency anemias; K44.9 Diaphragmatic hernia without obstruction or gangrene; K76.89 Other specified diseases of liver; Z79.899 Other long term (current) drug therapy; I51.7 Cardiomegaly
CPT/HCPCS: 78815; 82962; A9552